=== PATIENT | female | born 1950 | race Caucasian/White ===

== ENCOUNTER 2017-11-09 19:19 | Emergency (ER) | payer MEDICARE, BC ==
[~2017-11-09] VITALS: Ht 162.6 cm; Wt 83.2 kg
[~2017-11-09 19:19] MED LIST: DULO60 PO; FENT50DI T-DERMAL; GABA600T PO; GLYB1TAB50 PO; METO25 PO; PERC10TA27 PO; SUTE25CA PO; WALKER ROLLING
[2017-11-09 19:56] VITALS: BP 120/68; PULSE 80; RESP 20; TEMP 98.9; O2SAT 97
--- NOTE | 2017-11-09 20:14 | PD ---
HPI Chief Complaint: ENT Complaint Time Seen by Provider: 20:13 Travel History International Travel<30 days: No Contact w/Intl Traveler<30days: No Traveled to known affect area: No History of Present Illness HPI 67-year-old female came to the emergency room with history of bilateral earache but left worse than the right since this morning. No history of fever or chills. Patient says that the earache is progressively worsening. No trouble hearing out of the ear. No trouble swallowing. No other issues. Vital signs are stable. Patient does have history of renal cell carcinoma with metastases. [facility] Past Medical History Narrative Medical List of her past medical, surgical, social and family histories reviewed from the nursing note Arthritis: Yes Asthma: No Autoimmune Disease: No Blood Disorders: No Anxiety: Yes Depression: Yes Heart Rhythm Problems: No Cancer: Yes (RENAL CA WITH METS TO BONE) Cardiovascular Problems: Yes High Cholesterol: Yes Chemotherapy: Yes Chest Pain: No Congestive Heart Failure: No COPD: No Cerebrovascular Accident: No Diabetes: Yes (TYPE 2) Diminished Hearing: No Endocrine: No GERD: No Glaucoma: No Genitourinary: Yes Headaches: No Hepatitis: No Hiatal Hernia: No Hypertension: Yes Immune Disorder: No Kidney Stones: No Musculoskeletal: Yes Neurologic: No Psychiatric: Yes Reproductive: Yes Respiratory: No Migraines: No Myocardial Infarction: No Radiation Therapy: Yes Renal Failure: Yes Seizures: No Sickle Cell Disease: No Sleep Apnea: No Thyroid Disease: No Ulcer: No ?: Not Menopausal: Yes Past Surgical History Abdominal Surgery: Yes (CHOLECYSTECTOMY, APPENDECTOMY) AICD: No Arteriovenous Shunt: No Cardiac Surgery: No Cholecystectomy: Yes Ear Surgery: No Endocrine Surgery: No Eye Surgery: No Genitourinary Surgery: Yes (LEFT NEPHRECTOMY, PARTIAL RIGHT NEPHRECTOMY) Gynecologic Surgery: Yes (OOPHORECTOMY) Insulin Pump: No Joint Replacement: Yes (LEFT TOTAL HIP ) Oral Surgery: Yes (TONSILLECTOMY) Pacemaker: No Thoracic Surgery: Yes (RIGHT PARTIAL LOBECTOMY) Tonsillectomy: Yes Social History Alcohol Use: No Tobacco Use: No Substance Use: No Allergies-Medications (Allergen,Severity, Reaction): Coded Allergies: No Known Allergies (Verified Adverse Reaction, Unknown, 11/09/17) Comments No known drug allergies. Reported Meds & Prescriptions Reported Meds & Active Scripts Active Ibuprofen 600 Mg Tab 600 Mg PO Q6H PRN Reported Gabapentin 600 Mg Tab 600 Mg PO TID Fentanyl Patch 72 HR (Fentanyl) 50 Mcg/Hr Patch 50 Mcg T-DERMAL Q72H Remove old patch when new one placed. Lisinopril 10 Mg Tab 10 Mg PO DAILY Oxycodone (Oxycodone HCl) 10 Mg Tab 10 Mg PO Q4H PRN Narrative Medication List of her home medications reviewed from the nursing note. Review of Systems Except as stated in HPI: all other systems reviewed are Neg HENT: Positive: Earache Physical Exam Narrative GENERAL: Awake, alert, mild distress SKIN: Focused skin assessment warm/dry. HEAD: Atraumatic. Normocephalic. EYES: Pupils equal and round. No scleral icterus. No injection or drainage. ENT: No nasal bleeding or discharge. Mucous membranes pink and moist. Left TM shows a perforation at 11 o'clock position. Otherwise there is no redness or swelling. No cervical lymphadenopathy. No trismus. NECK: Trachea midline. No JVD. CARDIOVASCULAR: Regular rate and rhythm. No murmur appreciated. RESPIRATORY: No accessory muscle use. Clear to auscultation. Breath sounds equal bilaterally. GASTROINTESTINAL: Abdomen soft, non-tender, nondistended. Hepatic and splenic margins not palpable. MUSCULOSKELETAL: No obvious deformities. No clubbing. No cyanosis. No edema. NEUROLOGICAL: Awake and alert. No obvious cranial nerve deficits. Motor grossly within normal limits. Normal speech. PSYCHIATRIC: Appropriate mood and affect; insight and judgment normal. Data Data Last Documented VS Vital Signs Date Time Temp Pulse Resp B/P (MAP) Pulse Ox O2 Delivery O2 Flow Rate FiO2 11/09/17 22:24 98.4 84 18 115/62 (79) 98 Nasal Cannula Orders Orders Complete Blood Count With Diff (11/09/17 20:19) Basic Metabolic Panel (Bmp) (11/09/17 20:19) Group A Rapid Strep Screen (11/09/17 20:19) Ct Soft Tiss Neck W Iv Cont (11/09/17 ) Acetamin-Hydrocod 325-5 Mg ([place] 5-325 (11/09/17 20:30) ^ Saline Lock (11/09/17 20:19) Strep Culture (Group A) (11/09/17 20:37) Sodium Chlor 0.9% 1000 Ml Inj (Ns 1000 M (11/09/17 21:15) Iohexol 350 Inj (Omnipaque 350 Inj) (11/09/17 21:20) Ed Discharge Order (11/09/17 22:04) Labs Laboratory Tests Test 11/09/17 20:37 White Blood Count 6.0 TH/MM3 Red Blood Count 4.84 MIL/MM3 Hemoglobin 13.5 GM/DL Hematocrit 41.2 % Mean Corpuscular Volume 85.1 FL Mean Corpuscular Hemoglobin 27.9 PG Mean Corpuscular Hemoglobin Concent 32.8 % Red Cell Distribution Width 13.4 % Platelet Count 246 TH/MM3 Mean Platelet Volume 7.3 FL Neutrophils (%) (Auto) 69.5 % Lymphocytes (%) (Auto) 19.5 % Monocytes (%) (Auto) 10.3 % Eosinophils (%) (Auto) 0.1 % Basophils (%) (Auto) 0.6 % Neutrophils # (Auto) 4.2 TH/MM3 Lymphocytes # (Auto) 1.2 TH/MM3 Monocytes # (Auto) 0.6 TH/MM3 Eosinophils # (Auto) 0.0 TH/MM3 Basophils # (Auto) 0.0 TH/MM3 CBC Comment DIFF FINAL Differential Comment Blood Urea Nitrogen 12 MG/DL Creatinine 1.10 MG/DL Random Glucose 273 MG/DL Calcium Level 9.0 MG/DL Sodium Level 129 MEQ/L Potassium Level 3.9 MEQ/L Chloride Level 92 MEQ/L Carbon Dioxide Level 30.7 MEQ/L Anion Gap 6 MEQ/L Estimat Glomerular Filtration Rate 49 ML/MIN MDM Medical Decision Making Medical Screen Exam Complete: Yes Emergency Medical Condition: Yes Medical Record Reviewed: Yes Differential Diagnosis Soft tissue tumor of the neck, otalgia NOS Narrative Course 10:01 PM blood test results are back and patient has mild hyponatremia and hyperglycemia. I have ordered 1 L of IV fluid bolus. CAT scan has been done and the report is pending. Procedures EKG Prior to Arrival: No Diagnosis Primary Impression: Otalgia of both ears Additional Impressions: Hyperglycemia Hyponatremia Additional Instructions: Please follow-up with your primary care couple days if the pain does not resolve. Take the medication for prescription direction for next 2 days. Return to the ER if condition worsens or any other new concerns. Med/Other Pt SpecificInfo: Prescription(s) given Scripts Ibuprofen (Ibuprofen) 600 Mg Tab 600 MG PO Q6H Y for Pain/Inflammation, #40 TAB 0 Refills Prov: Marcela Hinson MD 11/09/17 Disposition: 01 DISCHARGE HOME Condition: Stable Marcela Hinson MD Nov 09, 2017 20:14
[2017-11-09] MEDS ORDERED: FENT50DI T-DERMAL (20:20)
[2017-11-09] MEDS ORDERED: GABA600T PO (20:20)
[2017-11-09] MEDS ORDERED: OXYC-395 PO (20:20)
[2017-11-09] MEDS ORDERED: LISI10TA3 PO (20:20)
[2017-11-09] MEDS ORDERED: ACETAMINOPHEN/HYDROcodone 325 MG/5 MG TAB PO ONE (20:30)
[2017-11-09 20:49] LABS: AUTOMATED NEUTROPHIL # 4.2 TH/MM3 (1.8-7.7); BASOPHIL % 0.6 % (0.0-2.0); EOSINOPHIL % 0.1 % (0.0-4.0); HEMATOCRIT 41.2 % (35.0-46.0); HEMOGLOBIN 13.5 GM/DL (11.6-15.3); LYMPH % 19.5 % (9.0-44.0); LYMPHOCYTE # 1.2 TH/MM3 (1.0-4.8); MEAN CELL VOLUME 85.1 FL (80.0-100.0); MEAN CORPUSCULAR HEMOGLOBIN 27.9 PG (27.0-34.0); MEAN CORPUSCULAR HGB CONC 32.8 % (32.0-36.0); MEAN PLATELET VOLUME 7.3 FL (7.0-11.0); MONO % 10.3 % (0.0-8.0); MONOCYTE # 0.6 TH/MM3 (0-0.9); NEUT % 69.5 % (16.0-70.0); PLATELET COUNT 246 TH/MM3 (150-450); RED BLOOD COUNT 4.84 MIL/MM3 (4.00-5.30); RED CELL DISTRIBUTION WIDTH 13.4 % (11.6-17.2)
[2017-11-09 20:59] LABS: BICARBONATE 30.7 MEQ/L (21.0-32.0)
[2017-11-09 21:03] LABS: CREATININE 1.1 MG/DL (0.50-1.00)
[2017-11-09] MEDS ORDERED: SODIUM CHLOR 0.9% 1000 ML INJ 1,000 ML IV ONE (21:15)
[2017-11-09] MEDS ORDERED: IOHEXOL 350 MG/ML 10 ML VIAL (for RAD DIAG) IVCONTRAST ONE (21:20)
[2017-11-09 21:41] VITALS: BP 120/60; PULSE 85; RESP 18; TEMP 98.2; O2SAT 97
--- NOTE | 2017-11-09 22:00 | RADRPT ---
EXAM DATE/TIME: 11/09/2017 21:23 [place] COMPARISON: No previous studies available for comparison. INDICATIONS : Left ear and throat pain IV CONTRAST: 71 cc Omnipaque 350 (iohexol) IV RADIATION DOSE: 14.13 CTDIvol (mGy) MEDICAL HISTORY : Renal cell carcinoma. Renal failure, chronic. Diabetes mellitus type 2.Bone mets, HTN SURGICAL HISTORY : Nephrectomy, left. Cholecystectomy.Tonsillectomy.RT lobectomy ENCOUNTER: Initial ACUITY: 1 day PAIN SCALE: 4/10 LOCATION: Left neck TECHNIQUE: Volumetric scanning of the neck was performed. Using automated exposure control and adjustment of th e mA and/or kV according to patient size, radiation dose was kept as low as reasonably achievable to obtain optimal diagnostic quality images. DICOM format image data is available electronically for r eview and comparison. FINDINGS: NASOPHARYNX: The nasopharyngeal airway has a normal configuration. No mucosal thickening or mass is seen. OROPHARYNX: The intrinsic muscles of the tongue are symmetric. The tonsillar pillars are intact. The prevertebr al soft tissues are not thickened. LARYNX: The supraglottic, glottic, and infraglottic structures are intact. PARAPHARYNGEAL: The parapharyngeal space is intact. SALIVARY GLANDS: The parotid and submandibular glands are intact. LYMPH NODES: No enlarged or necrotic-appearing nodes. THYROID: Homogeneous enhancement without evidence of nodule. BONES: Unremarkable. CONCLUSION: No acute disease. Khanh Cummings MD on November 09, 2017 at 21:56 Board Certified Radiologist. This report was verified electronically.
[2017-11-09] MEDS ORDERED: IBUP-232 PO (22:03)
[2017-11-09 22:24] VITALS: BP 115/62; TEMP 98.4
== END 2017-11-09 22:25 | disposition home or self-care (01) ==
LOC: PHED 19:19
DX: H92.03 Otalgia, bilateral (principal); E11.65 Type 2 diabetes mellitus with hyperglycemia; E87.1 Hypo-osmolality and hyponatremia; F32.9 Major depressive disorder, single episode, unspecified; E78.00 Pure hypercholesterolemia, unspecified; C79.51 Secondary malignant neoplasm of bone; I10 Essential (primary) hypertension; Z85.528 Personal history of other malignant neoplasm of kidney
CPT/HCPCS: 70491; 80048; 85025; 87081; 87880; 96360; 99284; J7030; Q9967